=== PATIENT | male | born 2005 | race Two or more races ===

== ENCOUNTER 2025-03-03 15:42 | Emergency (ER) | payer MEDICAID ==
[~2025-03-03] VITALS: Ht 172.7 cm; Wt 72.6 kg
[2025-03-03 15:53] VITALS: TEMP 98
[2025-03-03 16:49] VITALS: BP 124/70; O2SAT 99
== END 2025-03-03 16:50 | disposition home or self-care (01) ==
LOC: ER 15:46
DX: R09.1 Pleurisy (principal); F17.290 Nicotine dependence, other tobacco product, uncomplicated; Z91.013 Allergy to seafood
CPT/HCPCS: 71045-TC